=== PATIENT | female | born 1955 | race Caucasian/White ===

== ENCOUNTER 2016-10-02 03:51 | Inpatient (IN) | payer OTHER ==
[~2016-10-02] VITALS: Ht 162.6 cm; Wt 77.6 kg
[~2016-10-02 03:51] MED LIST: MULTIVITAMINS1 EAC8 PO; NORVASC10 M1 PO
--- NOTE | 2016-10-02 10:46 | Admission Core Measures ---
Admission Meds I reviewed the following Meds: Current Medications Sig/Stan Start time Last Medication Dose Stop Time Status Admin Acetaminophen 975 MG ONCE 10/02 NR (Tylenol) 10/02 2358 Cefazolin Sodium 2,000 MG ONCE 10/02 NR (Kefzol-Ancef Inj) 10/02 2358 Oxycodone HCl 10 MG ONCE 10/02 0000 AC (Roxicodone) 10/02 2358 Acute Coronary Syndrome Inclusion Criteria ACS Diagnosis No Inpatient Core Measures LDL Reminder: If No, please order W/I first 24hr of stay Congestive Heart Failure Inclusion Criteria CHF Diagnosis No Cerebrovascular accident Inclusion Criteria CVA/TIA Diagnosis No Inpatient Core Measures Bedside Swallow Eval Reminder: If BSE failed, place ST order Antithrombotic Reminder: Order Antithrombotic Medication by end of day 2 Antithrombotic Reminder: Document Reason Antithrombotic Not ordered by end of day 2 AFIB/Flutter Reminder: If Present, add to problem list AFIB/Flutter Reminder: Order Anticoag Medication for pts with AFIB/Flutter Atherosclerosis Reminder: If Present, add to problem list LDL Reminder: If No, please order W/I first 24hr of stay PT Order Reminder: If No, please order Venous thromboembolism Inpatient Core Measures VTE Risk Factors: Age > 40, Surgery VTE Prophylaxis Ordered Inpt Mech & Pharm No Mech VTE prophylaxis d/t No contraindications No VTE Pharm Prophylaxis d/t No contraindications Inclusion Criteria - Per Current guidelines, there needs to be overlap - treatment for the first 5 days of Warfarin therapy. - Parenteral Anticoagulation (IV or SC) needs to be - given along with Warfarin therapy. VTE Diagnosis No VTE Type NONE VTE Confirmed by (Test) NONE Problem List As ranked by this Provider includes Assessment & Plan 1. Status post total hip replacement, left HOME MEDS Home Med List Amlodipine Besylate (Norvasc) 10 MG TABLET 1 TAB PO DAILY bp (Reported) Multivitamin (Multivitamins) 1 EACH CAPSULE 1 TAB PO D SUPPLEMENT (Reported)
[2016-10-02] MEDS ORDERED: ASPIRIN325 M2 PO (11:29)
[2016-10-02] MEDS ORDERED: DILAUDID4 M1 PO (11:29)
[2016-10-02] MEDS ORDERED: MS CONTIN15 M2 PO (11:29)
[2016-10-02] MEDS ORDERED: MIRALAX17 G1 PO (11:29)
[2016-10-02] MEDS ORDERED: COLACE100 M1 PO (11:29)
--- NOTE | 2016-10-02 11:33 | Patient Discharge Instructions ---
Discharge Instructions General Discharge Information You were seen/treated for: Left hip degenerative joint disease You had these procedures: Left total hip arthroplasty Watch for these problems: Significantly increased pain or difficulty ambulating Temperature over 101.5 Increased redness or drainage from incision No bath, but you may shower: Yes Other wound care: Daily dry dressing change Special Instructions: See printed information sheet Diet Continue normal diet: Yes Activity Activity Self Limited: Yes Pounds, do NOT lift more than: 10 Other activity limits: Ambulate with walker as instructed by physical therapy Acute Coronary Syndrome Inclusion Criteria At DC or during hospital stay patient has or had the following: ACS DIAGNOSIS No Discharge Core Measures Meds if any: Prescribed or Continued at Discharge Meds if any: NOT Prescribed or Continued at Discharge Congestive Heart Failure Inclusion Criteria At DC or during hospital stay patient has or had the following: CHF DIAGNOSIS No Discharge Core Measures Meds if any: Prescribed or Continued at Discharge Meds if any: NOT Prescribed or Continued at Discharge Cerebrovascular accident Inclusion Criteria At DC or during hospital stay patient has or had the following: CVA/TIA Diagnosis No Discharge Core Measures Meds if any: Prescribed or Continued at Discharge Meds if any: NOT Prescribed or Continued at Discharge Venous thromboembolism Inclusion Criteria VTE Diagnosis No VTE Type NONE VTE Confirmed by (Test) NONE Discharge Core Measures - Per Current guidelines, there needs to be overlap - treatment for the first 5 days of Warfarin therapy. - If discharged on Warfarin prior to 5 days of - overlap therapy, the patient will need to be - assessed for post discharge needs including - *Post discharge parental anticoagulation - *Warfarin and/or parental anticoagulation education - *Follow up date to check INR post discharge At least 5 days overlap therapy as Inpatient No Meds if any: Prescribed or Continued at Discharge Note: Overlap Therapy is Warfarin and Anticoagulant Meds if any: NOT Prescribed or Continued at Discharge
--- NOTE | 2016-10-02 11:35 | Surg Short-stay <48hrs Dis Sum ---
Visit Information Visit Dates Admission Date: 10/02/16 Discharge Date: 10/02/16 Surgical Short Stay DC Summary Admission Diagnosis: Left hip degenerative joint disease Final Diagnosis: Same Procedure(s): Left total hip arthroplasty Summary/Significant Findings: The patient was admitted on 10/02/2016. She is brought to the operating theater and underwent a left total hip arthroplasty. Postoperative the patient progressed as expected, her pain was under adequate control, and she worked with physical therapy. The patient tolerated a diet and voided postoperatively. She was discharged with a complicated hospital course. Condition at Discharge: Stable Discharge Disposition: home health services Discharge instructions provided to patient/family: Yes Post discharge follow-up plan: Call the office to be seen in 6 weeks or earlier if need be
--- NOTE | 2016-10-02 14:49 | RADIOLOGY REPORT ---
EXAMINATION: XR HIP, LEFT CLINICAL INFORMATION: Left hip replacement COMPARISON: None TECHNIQUE: Two views of the left hip. FINDINGS: Status post left total hip arthroplasty. The femoral head prosthesis is well centered within the acetabular cup, which exhibits approximately 35 degrees of anteversion and 45 degrees of lateral version. The femoral stem is well centered within the proximal femoral diaphysis and there is no endosteal scalloping or fracture. There is mild soft tissue swelling and soft tissue gas around the postoperative hip. IMPRESSION: Satisfactory positioning and alignment of components of left total hip arthroplasty.
--- NOTE | 2016-10-02 15:56 | NUR ---
PT ARRIVED TO FLOOR VIA STRETCHER, AO, RA, +CMS TO LLE, + LPEDAL PULSE, L HIP DSG INTACT W/ ICE IN PLACE, HAS NOT YET VOIDED, TOELRATING PO ICE CHIPS, NO C/O PAIN, VSS, ORIENTED TO ROOM AND CALL LIGHT, #20 RH PATENT W/ D51/2 NS @ 75ML/HR RUNNING, ADMISSION COMPLETE, DINNER ORDERED, WILL CONTINUE TO MONITOR.
--- NOTE | 2016-10-02 16:09 | Operative Report ---
Operative/Inv Procedure Report Surgery Date: 10/02/16 Name of Procedure: Left total hip replacement Pre-Operative Diagnosis: Primary left hip DJD Post-Operative Diagnosis: Same Estimated Blood Loss: 250 Surgeon/Ocean Forwarder: DESIREE PEREZ,TED Mercado Anesthesia: block Operative/Procedure Note Note: Description of Procedure: The patient was taken to the operating room and positively identified. After induction of spinal anesthesia and administration of appropriate pre-operative antibiotics, the patient was positioned supine on the operating room table and all bony prominences were well padded. After performing a surgical timeout, the left lower extremity was prepped and draped in the usual sterile fashion. A direct anterior approach was made to the left hip. The incision was carried sharply through superficial soft tissues to the level of the fascia. Meticulous hemostasis was maintained with Bovie electocautery. The fascia over the tensor fascia jonny muscle was opened sharply and the interval between the TFL and the sartorius was entered bluntly taking care to stay lateral to the lateral femoral cutaneous nerve. Retractors were placed around the femoral neck and the pericapsular fat was identified. The ascending branches of the lateral femoral circumflex vessels were identified and carefully coagulated. The pericapsular fat and anterior capsule were then resected. A napkin ring osteotomy was performed and the femoral head was removed without difficulty. Attention was then turned to the acetabulum. After appropriate placement of retractors, the acetabulum was exposed. Soft tissue was cleaned from the acetabular margin and notch. Overhanging osteophytes were removed and the teardrop was exposed. The acetabulum was then sequentially reamed to accept a 52 mm [place] Tritanium hemispherical solid back shell. This was impacted into place in the appropriate position and fitted with a 32 mm Trident X3 zero degree polyethylene insert. Attention was then turned to the femur. After performing the appropriate ligament releases, the proximal femur was exposed. It was then sequentially broached to accept a size 4 [place] accolade 2 stem. This was trialed for leg length and stability. The trial component was removed and the final component was impacted into place. The trunnion was carefully cleaned and fit with a 32 mm, -4 [employer] delta ceramic femoral head. The hip was reduced and put through a full range of motion and found to be stable. The articular space was then irrigated with sterile saline. The periarticular soft tissues were infilitrated with Marcaine. The fascial layer was closed with interrupted #1 vicryl suture and the skin was re-approximated with interrupted 2 -0 vicryl. The skin was closed with a running 3-0 V-Lock suture. Steri-strips and a sterile dressing were applied. The patient was awakened and taken to the recovery room in satisfactory condition.
--- NOTE | 2016-10-02 16:17 | PN- Orthopedic ---
Subjective Subjective: The patient was seen this afternoon postoperatively. She reports her pain is under adequate control and is other complaints at the current time. She ambulated with physical therapy adequately and denies any current nausea. She has yet to void postoperatively. Objective Vital Signs and I&Os Vital signs: Blood pressure 1teens over 60s, pulse 70, temperature 98.3, O2 saturations 97% on room air I's and O's: 2300 ML's in of lactated Ringer's/patient is due to void/EBL 50 ML Physical Exam: Gen.: Alert and obvious distress Skin: Warm and dry Cardiac: S1 and S2 regular Pulmonary: Bilateral breath sounds are equal with good exchange Extremities: Bilateral lower extremities are warm without calf tenderness or significant edema. Gross motor and sensory were intact. Left hip surgical dressing was clean, dry, and intact. Assessment/Plan Assessment/Plan Assessment: 61-year-old female status post left total hip arthroplasty. Postoperative the patient is progressing as expected, her pain is under adequate control and she is ambulating adequately without any issues. Plan: Advance diet as tolerated Monitor for postoperative void GI and DVT prophylaxis begin aspirin 325 mg by mouth twice a day first dose tonight Out of bed with physical therapy patient is weightbearing as tolerated Follow-up morning laboratory studies to the patient's remain in-house Discharge later today if patient voids and tolerates a diet without nausea. Resume home medications Core Measures/Miscellaneous Venous Thromboembolism VTE Risk Factors: Age > 40, Surgery VTE Contraindications: No Contraindications VTE Prophylaxis Ordered Inpt: Mech & Pharm VTE Diagnosis: No VTE Type: NONE VTE Confirmed by (Test): NONE Beta Tim Is Beta Tim a Home Med? No Antibiotics Is Patient on Antibiotics? Yes If Yes: prophylaxis
[2016-10-02 16:35] VITALS: BP 108/62
[2016-10-02 18:08] VITALS: BP 110/60
--- NOTE | 2016-10-02 18:38 | NUR ---
PT VOIDED TO TOILET BUT MISSED HAT FOR MEASURMENT, BLADDER SCANNED PT @ 520ML, PT ENCOURAGED TO VOID AGAIN BEFORE DISCHARGE. PA GISEL AWARE.
== END 2016-10-02 19:25 | disposition home health service (06) | DRG 470 ==
LOC: ENRESERVDT → ENRESERVTM → SDA 03:51 → 2NA 16:09
PROVIDERS: ADMIT Orthopaedic Surgery
PROC: 0SRB04A Replacement of Left Hip Joint with Ceramic on Polyethylene Synthetic Substitute, Uncemented, Open Approach (ICD-10-PCS; principal; 2016-10-02)
DX: M16.12 Unilateral primary osteoarthritis, left hip (principal); I10 Essential (primary) hypertension; Z87.891 Personal history of nicotine dependence
CPT/HCPCS: 2NAP; 73502-LT; 88304; 97116-GO; 97161-GP; 97530-GO; J0131; J0690; J0735; J2405; J7042